=== PATIENT | female | born 1945 | race Hispanic/Latino ===

== ENCOUNTER 2017-05-06 19:02 | Inpatient (IN) | payer MEDICARE, OTHER ==
--- NOTE | 2017-05-06 19:24 | ED PDOC ---
Arrival/HPI - General Chief Complaint: Palpitations Time Seen by Provider: 05/06/17 19:20 Historian: Patient - History of Present Illness Narrative History of Present Illness (Text): 05/06/17 19:22 A 71 year old female, whose past medical history includes diabetes and hypertension, presents to the emergency department complaining of palpitations for the past 1/2 hour. Patient denies fever, chills, nausea, vomiting, abdominal pain, shortness of breath, cough, weight loss or any other complaints. PMD: Dr. Lees C.O.D. Clerk: Dr. Salinas 05/06/17 22:46 Time/Duration: 1/2 hour Symptom Course: Unchanged Context: Home Past Medical History - Provider Review Nursing Documentation Reviewed: Yes - Cardiac Hx Cardiac Disorders: Yes Hx Hypertension: Yes - Endocrine/Metabolic Hx Endocrine Disorders: Yes Hx Diabetes Mellitus Type 2: Yes - Psychiatric Hx Substance Use: No Family/Social History - Physician Review Nursing Documentation Reviewed: Yes Family/Social History: No Known Family HX Smoking Status: Never Smoked Hx Alcohol Use: No Hx Substance Use: No Allergies/Home Meds Allergies/Adverse Reactions: Allergies meperidine [From Demerol] Allergy (Verified 05/06/17 19:16) ANAPHYLAXIS Sulfa (Sulfonamide Antibiotics) Allergy (Verified 05/06/17 19:16) ANAPHYLAXIS Home Medications: Home Meds Medication Instructions Recorded Confirmed Aspirin [Adult Aspirin Regimen] 81 mg PO DAILY 05/06/17 05/06/17 NIFEdipine ER [Procardia XL] 90 mg PO DAILY 05/06/17 05/06/17 metFORMIN [glucOPHAGE] 500 mg PO DAILY 05/06/17 05/06/17 Review of Systems - Physician Review All systems were reviewed & negative as marked: Yes - Review of Systems Constitutional: absent: Weight Change, Fevers, Night Sweats Respiratory: absent: SOB, Cough Cardiovascular: Palpitations. absent: Chest Pain Gastrointestinal: absent: Abdominal Pain, Constipation, Diarrhea, Nausea, Vomiting Physical Exam Vital Signs Reviewed: Yes Vital Signs Temp Pulse Resp BP Pulse Ox 05/06/17 21:03 88 18 138/72 98 05/06/17 20:26 110 H 05/06/17 19:16 98.3 F 123 H 18 143/65 100 Temperature: Afebrile Blood Pressure: Normal Pulse: Tachycardic Respiratory Rate: Normal Appearance: Positive for: Well-Appearing, Non-Toxic, Uncomfortable Pain Distress: None Mental Status: Positive for: Alert and Oriented X 3 - Systems Exam Head: Present: Atraumatic, Normocephalic Pupils: Present: PERRL Extroacular Muscles: Present: EOMI Conjunctiva: Present: Normal Mouth: Present: Moist Mucous Membranes Neck: Present: Normal Range of Motion Respiratory/Chest: Present: Clear to Auscultation, Good Air Exchange. No: Respiratory Distress, Accessory Muscle Use Cardiovascular: Present: Normal S1, S2, Tachycardic. No: Murmurs Abdomen: Present: Normal Bowel Sounds. No: Tenderness, Distention, Peritoneal Signs Back: Present: Normal Inspection Upper Extremity: Present: Normal Inspection. No: Cyanosis, Edema Lower Extremity: Present: Normal Inspection. No: Edema, CALF TENDERNESS Neurological: Present: GCS=15, CN II-XII Intact, Speech Normal Skin: Present: Warm, Dry, Normal Color. No: Rashes Psychiatric: Present: Alert, Oriented x 3, Normal Insight, Normal Concentration Medical Decision Making ED Course and Treatment: 05/06/17 19:22 Impression: A 71 year old female with palpitations. Denies chest pain. Plan: -- Chest xray -- EKG -- Labs -- Aspirin -- Reassess and disposition Progress Notes: 05/06/17 19:18 EKG shows sinus tachycardia at [address]-segment elevation in lead III, ST-segment depressions in V2-V3. Interpreted by me. Code heart called activated at 19:21 05/06/17 19:24 Repeat EKG shows sinus tachycardia at [address]-segment elevation in lead III, ST-segment depressions in V2-V3. Interpreted by me. Case discussed with Dr. Wu, electronic gaming device supervisor patient registration clerk. Code heart deactivated at this time but requesting heparin bolus and drip and beta sarai. 05/06/17 20:28 Heart rate improved to 88 after lopressor. Trop x 1 negative. Cxray negative. Admit to Dr. Lees for palpitations 05/06/17 22:47 - Lab Interpretations Lab Results: 05/06/17 19:21 05/06/17 19:21 Lab Results 05/06/17 20:00: Free T4 1.15, TSH 3rd Generation 5.12 H 05/06/17 19:21: Sodium 139, Potassium 2.6 L*, Chloride 99, Carbon Dioxide 24, Anion Gap 19, BUN 20, Creatinine 1.2, Est GFR ( Amer) 54, Est GFR (Non- Af Amer) 44, Random Glucose 342 H*, Calcium 9.8, Total Bilirubin 0.4, AST 23, ALT 14, Alkaline Phosphatase 191 H, Lactate Dehydrogenase 396, Total Creatine Kinase 42, Troponin I < 0.01, Total Protein 8.7 H, Albumin 4.3, Globulin 4.4, Albumin/Globulin Ratio 1.0 L 05/06/17 19:21: PT 10.2, INR 0.94, APTT 30.1 05/06/17 19:21: WBC 14.7 H, RBC 4.57, Hgb 13.5, Hct 39.6, MCV 86.7, MCH 29.5, MCHC 34.1, RDW 12.5, Plt Count 484 H, MPV 8.6, Gran % 71.9 H, Lymph % (Auto) 19.9 L, Cross % (Auto) 5.0, Eos % (Auto) 2.7, Baso % (Auto) 0.5, Gran # 10.61 H, Lymph # 2.9, Cross # 0.7 H, Eos # 0.4, Baso # 0.07 I have reviewed the lab results: Yes - RAD Interpretation Radiology Orders: 05/06/17 19:24 CHEST PORTABLE [RAD] Stat - Medication Orders Current Medication Orders: Aspirin (Aspirin Chewable) 81 mg PO DAILY FRANCES Heparin Sodium/Sodium Chloride (Heparin 53276 Units/250ml 1/2 Normal Saline) 25 ,000 units in 250 mls @ 8.252 mls/hr IV .Q24H FRANCES; 12 UNITS/KG/HR PRN Reason: Protocol Last Admin: 05/06/17 20:20 Dose: 8.252 mls/hr eMAR Start Stop Document 05/06/17 20:20 AD (Rec: 05/06/17 20:21 AD [id number]) Intravenous Solution Start Date 05/06/17 Start Time 20:21 MAR aPTT Document 05/06/17 20:20 AD (Rec: 05/06/17 20:21 AD [id number]) aPTT aPTT (secs) 30.1 Potassium Chloride (Potassium Chloride 20 Meq/100 Ml) 20 meq in 100 mls @ 50 mls/hr IVPB Q2H FRANCES Stop: 05/06/17 23:59 Last Admin: 05/06/17 22:21 Dose: 50 mls/hr eMAR Start Stop Document 05/06/17 22:21 SGG (Rec: 05/06/17 22:21 SGG [id number]) Intravenous Solution Start Date 05/06/17 Start Time 22:21 Insulin Human Regular (Humulin R Med) 0 units SC ACHS FRANCES PRN Reason: Protocol Last Admin: 05/06/17 22:21 Dose: Not Given Non-Admin Reason: Blood Sugar Parameter Metformin HCl (Glucophage) 500 mg PO BID FRANCES Discontinued Medications Aspirin (Aspirin Chewable) 324 mg PO STAT STA Stop: 05/06/17 19:27 Last Admin: 05/06/17 19:25 Dose: 324 mg Heparin Sodium (Porcine) (Heparin) 4,000 units IV ONCE ONE PRN Reason: Protocol Stop: 05/06/17 19:37 Last Admin: 05/06/17 20:26 Dose: 4,000 units eMAR Start Stop Document 05/06/17 20:26 AD (Rec: 05/06/17 20:26 AD [id number]) Intravenous Solution Start Date 05/06/17 Start Time 19:40 MAR aPTT Document 05/06/17 20:26 AD (Rec: 05/06/17 20:26 AD [id number]) aPTT aPTT (secs) 30.1 Sodium Chloride (Sodium Chloride 0.9%) 500 mls @ 999 mls/hr IV .Q31M STA Stop: 05/06/17 21:00 Last Admin: 05/06/17 21:45 Dose: 999 mls/hr eMAR Start Stop Document 05/06/17 21:45 AD (Rec: 05/06/17 21:45 AD [id number]) Intravenous Solution Start Date 05/06/17 Start Time 20:30 Metoprolol Tartrate (Lopressor) 5 mg IVP STAT STA Stop: 05/06/17 19:40 Last Admin: 05/06/17 20:26 Dose: 5 mg IVP Administration Document 05/06/17 20:26 AD (Rec: 05/06/17 20:26 AD [id number]) Charges for Administration # of IVP Administrations 1 MAR Pulse and Blood Pressure Document 05/06/17 20:26 AD (Rec: 05/06/17 20:26 AD [id number]) Pulse Pulse Rate (60-90) 110 Potassium Chloride (K-Dur 20 Meq Er Tab) 40 meq PO STAT STA Stop: 05/06/17 19:48 Last Admin: 05/06/17 19:50 Dose: 40 meq - Scribe Statement The provider has reviewed the documentation as recorded by the Raquelibchuckie Espinoza Provider Scribe Attestation: All medical record entries made by the Scribe were at my direction and personally dictated by me. I have reviewed the chart and agree that the record accurately reflects my personal performance of the history, physical exam, medical decision making, and the department course for this patient. I have also personally directed, reviewed, and agree with the discharge instructions and disposition. Disposition/Present on Arrival - Present on Arrival Any Indicators Present on Arrival: No History of DVT/PE: No History of Uncontrolled Diabetes: No Urinary Catheter: No History of Decub. Ulcer: No History Surgical Site Infection Following: None - Disposition Have Diagnosis and Disposition been Completed?: Yes Diagnosis: Palpitations Disposition: HOSPITALIZED Disposition Time: 21:03 Patient Plan: Admission Condition: FAIR
[2017-05-06 19:31] LABS: BASO # 0.07 K/mm3 (0.0-2.0); BASO % 0.5 % (0.0-3.0); EOS # 0.4 (0.0-0.7); EOS % 2.7 % (1.5-5.0); GRAN # 10.61 (1.4-6.5); GRAN % 71.9 % (50.0-68.0); HEMATOCRIT 39.6 % (36.0-48.0); LYMPH # 2.9 (1.2-3.4); LYMPH % 19.9 % (22.0-35.0); MEAN CELL VOLUME 86.7 fl (80.0-105.0); MEAN CORPUSCULAR HEMOGLOBIN 29.5 pg (25.0-35.0); MEAN CORPUSCULAR HGB CONC 34.1 g/dl (31.0-37.0); MEAN PLATELET VOLUME 8.6 fl (7.0-11.0); MONO # 0.7 (0.1-0.6); RED CELL DISTRIBUTION WIDTH 12.5 % (11.5-14.5); WHITE BLOOD COUNT 14.7 10^3/ul (4.5-11.0)
[2017-05-06] MEDS ORDERED: Metoprolol 1 mg/ml Inj IVP STA (19:39)
[2017-05-06] MEDS ORDERED: Heparin25000 units/250ml 1/2NS 25,000 UNITS/250 ML BAG IV SCH (19:45)
[2017-05-06 19:46] LABS: ALKALINE PHOSPHATASE 191 U/L (38-126); ALT/SGPT 14 U/L (7-56); AST/SGOT 23 U/L (14-36); BILIRUBIN,TOTAL 0.4 mg/dL (0.2-1.3); BLOOD UREA NITROGEN 20 mg/dL (7-21); CALCIUM 9.8 mg/dL (8.4-10.5); CARBON DIOXIDE 24 mmol/L (21-33); CHLORIDE 99 mmol/L (98-107); GFR AFRICAN-AMERICAN 54; GLUCOSE,RANDOM 342 mg/dL (70-110); POTASSIUM 2.6 mmol/L (3.6-5.0); SODIUM 139 mmol/L (132-148); TOTAL PROTEIN 8.7 g/dL (5.8-8.3)
[2017-05-06 19:47] LABS: INR 0.94 (0.93-1.08)
[2017-05-06] MEDS ORDERED: Potassium Chloride 20 mEq ER Tab PO STA (19:47)
[2017-05-06 19:48] LABS: PARTIAL THROMBOPLASTIN TIME 30.1 Seconds (25.1-36.5)
[2017-05-06 19:52] LABS: TROPONIN I < 0.01 ng/mL
[2017-05-06] MEDS ORDERED: Sodium Chloride 0.9% 500 ML IV STA (20:30)
[2017-05-06 20:34] LABS: FREE T4 1.15 ng/dL (0.78-2.19)
[2017-05-06 20:47] LABS: THYROID STIMULATING HORMONE 5.12 mIU/mL (0.46-4.68)
[2017-05-06] MEDS: Insulin Reg-MEDIUM-Coverage SC SCH (22:21)
[2017-05-07 06:23] LABS: BASO # 0.06 K/mm3 (0.0-2.0); BASO % 0.5 % (0.0-3.0); EOS # 0.2 (0.0-0.7); EOS % 1.6 % (1.5-5.0); GRAN # 8.84 (1.4-6.5); GRAN % 69.5 % (50.0-68.0); HEMATOCRIT 37.3 % (36.0-48.0); LYMPH # 2.9 (1.2-3.4); LYMPH % 23.1 % (22.0-35.0); MEAN CELL VOLUME 87.8 fl (80.0-105.0); MEAN CORPUSCULAR HEMOGLOBIN 29.2 pg (25.0-35.0); MEAN CORPUSCULAR HGB CONC 33.2 g/dl (31.0-37.0); MEAN PLATELET VOLUME 8.8 fl (7.0-11.0); MONO # 0.7 (0.1-0.6); MONO % 5.3 % (1.0-6.0); RED CELL DISTRIBUTION WIDTH 12.7 % (11.5-14.5); WHITE BLOOD COUNT 12.7 10^3/ul (4.5-11.0)
[2017-05-07 06:57] LABS: ALKALINE PHOSPHATASE 173 U/L (38-126); ALT/SGPT 22 U/L (7-56); AST/SGOT 55 U/L (14-36); BILIRUBIN,TOTAL 0.3 mg/dL (0.2-1.3); BLOOD UREA NITROGEN 18 mg/dL (7-21); CALCIUM 9.4 mg/dL (8.4-10.5); CARBON DIOXIDE 23 mmol/L (21-33); CHLORIDE 104 mmol/L (98-107); GFR AFRICAN-AMERICAN > 60; GLUCOSE,RANDOM 165 mg/dL (70-110); POTASSIUM 4.1 mmol/L (3.6-5.0); SODIUM 141 mmol/L (132-148); TOTAL PROTEIN 7.7 g/dL (5.8-8.3)
--- NOTE | 2017-05-07 08:04 | RAD ---
HISTORY: chest pain COMPARISON: No prior. FINDINGS: LUNGS: No active pulmonary disease. PLEURA: No significant pleural effusion identified, no pneumothorax apparent. CARDIOVASCULAR: Normal. OSSEOUS STRUCTURES: No significant abnormalities. VISUALIZED UPPER ABDOMEN: Normal. OTHER FINDINGS: None. IMPRESSION: No active disease.
[2017-05-07] MEDS ORDERED: Lidocaine 2% Inj (20ml) ONE (08:17)
[2017-05-07] MEDS ORDERED: Iohexol 350 MG/100 ML VIAL ONE (08:18)
[2017-05-07] MEDS ORDERED: Iohexol 350mgl/ml 50 ML ONE (08:18)
[2017-05-07] MEDS ORDERED: Phenylephrine 10 mg/ml Inj ONE (08:18)
[2017-05-07] MEDS: Insulin Reg-MEDIUM-Coverage SC SCH ×4 (08:21→22:23)
[2017-05-07] MEDS ORDERED: Iodixanol 320 MG/ML 200 ML BOTTLE IV ONE (08:22)
[2017-05-07 08:44] VITALS: O2SAT 98
[2017-05-07] MEDS ORDERED: Nitroglycerin 50mg in D5W 50 MG/250 ML BOTTLE IV ONE (08:45)
[2017-05-07 08:48] LABS: TROPONIN I 3.57 ng/mL
[2017-05-07] MEDS ORDERED: Midazolam 2 MG/2 ML VIAL ONE (08:58)
[2017-05-07 09:28] LABS: CHOLESTEROL 222 mg/dL (130-200)
[2017-05-07] MEDS ORDERED: Eptifibatide 20 mg/10mL Inj IVP ONE (09:32)
[2017-05-07] MEDS ORDERED: Sodium Chloride 0.9% 1,000 ML IV SCH (10:45)
--- NOTE | 2017-05-07 11:45 | CARD ---
APPROVED REPORT EKG Measurement Heart [id number] [place] 160P32 [id number] <Conclusion> Sinus tachycardia Left axis deviation PRWP STTW changes c/e ischemia
--- NOTE | 2017-05-07 11:47 | CARD ---
APPROVED REPORT EKG Measurement Heart [id number] CT 152P31 [id number] <Conclusion> Sinus tachycardia Left axis deviation PRWP STTW chanhges c/w ischemia No change from earlier ECG
--- NOTE | 2017-05-07 12:21 | CARD ---
APPROVED REPORT EKG Measurement Heart [id number] [place] 148P36 [id number] <Conclusion> Normal sinus rhythm Left axis deviation Inferior infarct, age undetermined Improved repolarization changes c/w ECG 05/06/17
--- NOTE | 2017-05-07 13:05 | CARD ---
APPROVED REPORT Procedure(s) performed: Left Heart Catheterization PTCA with Stenting of MId LAD with COOKIE PTCA with Stenting of OM! with COOKIE PTCA with Balloon Angioplasty of Mid Circumflex HISTORY The patient is a 71 year-old female with a history of : diabetes mellitus with insulin treatment , hypertension , Admitted with ACS/ NSTEMI. INDICATION The indication(s) include : non-STEMI . CASE TECHNIQUE The patient was brought urgently to the Cardiac Catheterization Laboratory in a fasting state and was prepped and draped in a sterile manner. The left wrist was infiltrated with 2% Lidocaine subcutaneous anesthesia. A 6FR GLIDESVerified Identity PassTH ACCESS KIT sheath was inserted into the left radial artery without difficulty. Coronary angiography was performed using coronary diagnostic catheters. The left coronary system was accessed and visualized with a Diagnostic ,5 Fr JL 4 catheter. The right coronary system was accessed and visualized with a Diagnostic ,5 Fr JR 4 catheter. The left ventricle was accessed and visualized with a 5 Fr Pigtail 145 (Angled) catheter. Left ventricular/Aortic Valve gradient assessed on pullback. Left ventriculogram was performed in PATTERSON projection. Closure device was deployed with a Fr TR Band (Regular) without any complications. The patient tolerated the procedure well and there were no complications associated with the procedure. Vessel Analysis The patient's coronary anatomy is right dominant. The left main coronary artery is a medium size vessel with diffuse calcification noted throughout this vessel and without significant stenosis. There is a 30% stenosis in the distal segment. The left main bifurcates to the left anterior descending and circumflex. The left anterior descending artery is a medium size vessel with diffuse calcification noted throughout this vessel and with significant stenosis. There is a 80% stenosis in the mid segment. The first diagonal branch is a medium size vessel with diffuse calcification noted throughout this vessel and without significant stenosis. The second diagonal branch is a small size vessel with diffuse calcification noted throughout this vessel and without significant stenosis. The circumflex artery is a medium size vessel with diffuse calcification noted throughout this vessel and with significant stenosis. There is a 80% stenosis in the mid segment. The first obtuse marginal branch is a large size vessel with diffuse calcification noted throughout this vessel and with significant stenosis. There is a 99% stenosis in the ostial segment. The right coronary artery is a medium size vessel with diffuse calcification noted throughout this vessel and without significant stenosis. The right posterior descending artery is a large size vessel with diffuse calcification noted throughout this vessel and without significant stenosis. The right posterolateral branch is a small size vessel with diffuse calcification noted throughout this vessel and with significant stenosis. There is a 100% stenosis . Left Ventricle The left ventricle is normal in size with normal contractility. There was no cardiomyopathy. The left ventricular ejection fraction is estimated to be 55%. The left ventricular end diastolic pressure is 12 mmHg. There was no gradient across the aortic valve upon pullback. PCI Technique Lesion Anticoagulation was achieved with Heparin. Percutaneous coronary intervention was performed on the mid left anterior descending artery segment. The lesion stenosis prior to intervention was 80% with MARÍA 2 flow. A 6 Fr XB 3 Guide Catheter was used to engage the ostium. A Luge 182 Interventional Guidewire was used to cross the lesion. BALLOON DILATION A Balloon catheter 2.0 x 6 mm Sprinter RX was inserted and inflated up to 8.00atm for 11seconds. STENT DEPLOYMENT A drug-eluting stent 3.0 x 9 mm Resolute COOKIE was inserted and inflated up to 11.00atm for 16seconds. Final angiography reveals 0 % stenosis with MARÍA 3 flow. PCI Technique Lesion 2 Percutaneous Coronary Intervention was performed on the first obtuse marginal branch segment. The lesion stenosis prior to intervention was 99% with MARÍA 2 flow. A 6 Fr XB 3 Guide Catheter was used to engage the ostium. A 0.014 x 182 cm Choice PT Extra Support Interventional Guidewire was used to cross the lesion. BALLOON DILATION A Balloon catheter 2.25 x 10 mm Sprinter RX was inserted and inflated up to 8.00atm for 24seconds. STENT DEPLOYMENT A drug-eluting stent 2.75 x 8 mm Resolute COOKIE was inserted and inflated up to 10.00atm for 20seconds. Final angiography reveals 0 % stenosis with MARÍA 3 flow. PCI Technique Lesion 3 Percutaneous Coronary Intervention was performed on the mid circumflex artery segment. The lesion stenosis prior to intervention was 80% with MARÍA 2 flow. A 6 Fr XB 3 Guide Catheter was used to engage the ostium. A Luge 182 Interventional Guidewire was used to cross the lesion. BALLOON DILATION A Balloon catheter 2.25 x 10 mm Sprinter RX was inserted and inflated up to 8.00atm for 18seconds. multiple inflatation 6-8 atmosphere Final angiography reveals 20-30 % stenosis with MARÍA 3 flow. Conclusion Multivessel CAD Preserved LV Fx, EF-55%, EDP-12 mmof Hg. Successful PTCA with COOKIE of Mid LAD and Ostial OM1 and POBA of Mid Cx Recommendations Cardiac Rehabilitation ReferralDaily ASA with Plavix for at least one year Aggressive Medical TherapyCardiac Risk Reduction Program F/u stress test in six months to montor progression of CADand ensure patency of PTCA sites. Medical treatment for RCA for now, should she becomes symptomatic, may consider PCI of RCA, though unlikely. CC; dr. Shane lilly.
[2017-05-07] MEDS ORDERED: Bacitracin 500 Units/gm Oint Foilpak UD ONE (14:49)
[2017-05-07 15:14] LABS: BASO # 0.04 K/mm3 (0.0-2.0); BASO % 0.4 % (0.0-3.0); EOS # 0.1 (0.0-0.7); EOS % 0.5 % (1.5-5.0); GRAN # 8.17 (1.4-6.5); GRAN % 74.2 % (50.0-68.0); HEMATOCRIT 35.3 % (36.0-48.0); LYMPH # 2.2 (1.2-3.4); LYMPH % 19.5 % (22.0-35.0); MEAN CELL VOLUME 87.6 fl (80.0-105.0); MEAN CORPUSCULAR HEMOGLOBIN 29.5 pg (25.0-35.0); MEAN CORPUSCULAR HGB CONC 33.7 g/dl (31.0-37.0); MEAN PLATELET VOLUME 8.5 fl (7.0-11.0); MONO # 0.6 (0.1-0.6); MONO % 5.4 % (1.0-6.0); RED CELL DISTRIBUTION WIDTH 12.6 % (11.5-14.5)
[2017-05-07 15:44] LABS: BLOOD UREA NITROGEN 14 mg/dL (7-21); CALCIUM 8.9 mg/dL (8.4-10.5); CARBON DIOXIDE 25 mmol/L (21-33); CHLORIDE 105 mmol/L (98-107); GFR AFRICAN-AMERICAN > 60; GLUCOSE,RANDOM 199 mg/dL (70-110); POTASSIUM 3.7 mmol/L (3.6-5.0); SODIUM 140 mmol/L (132-148)
--- NOTE | 2017-05-07 18:12 | PN ---
DATE: 05/07/2017 REASON FOR CONSULTATION: Acute coronary syndrome, unstable angina. BRIEF MEDICAL HISTORY: The patient is a 71-year-old female with a past medical history significant for hypertension, hyperlipidemia, and diabetes, admitted with acute coronary syndrome and significant ST-T changes. The patient underwent cardiac catheterization that shows high-grade stenosis at mid LAD of 80%, proximal circumflex of 80% and 90% stenosis, and ostial OM1 99% stenosis. The patient underwent successful PTCA with drug-eluting stent in LAD and OM1 and plain balloon angioplasty of circumflex. The patient was loaded with Plavix approached through left radial. Further recommendation will depend upon the hospital course. We will get lipid profile, TSH, and hemoglobin A1c. We will get echo by the time the patient is going to the environmental laboratory technician. Troponin came back, second one was at 3.69, so consistent with acute coronary syndrome. The patient had lesion in RCA of 60%. PLAN: To follow her up with a stress test in 6 months as outpatient and if symptomatic, we will consider PTCA of RCA. Otherwise, we will treat medically and also the patient had PLV branch occluded, not suitable for PCI, preserved LV function. Medical treatment recommended. Casey Salinas MD cc: Kristian Lees MD
--- NOTE | 2017-05-07 18:52 | HP ---
HISTORY OF PRESENT ILLNESS: The patient is a 71 year old woman with a past medical history of hypertension, hyperlipidemia and non insulin-dependent diabetes mellitus who presented to [facility] for evaluation of a 1 day history of palpitations. The patient reported to be in her usual state of health on the day of presentation to the ED when she was running multiple errands without any symptoms. Later that evening, after having dinner, the patient reported sitting on her bed and using her iPad when she developed a sudden sensation of palpitations. The patient states that she felt as though her heart was "racing in her chest" and reported lightheadedness associated with her symptoms. She denied chest pain, dyspnea, diaphoresis or near-syncope associated with her symptoms. After several minutes when her palpitations had not subsided, she called EMS and was brought to [facility] ED for further evaluation. Upon arrival to the ED, she was noted to be tachycardic with a pulse of 123 and in sinus rhythm, but was otherwise hemodynamically stable. An EKG demonstrated isolated ST elevation in lead III with depressions in V2 and V3. The patient was started on a heparin drip and subsequently admitted to the telemetry tellez for continued management. PAST MEDICAL HISTORY: As per HPI. PAST SURGICAL HISTORY: , partial hysterectomy. ALLERGIES: CODEINE, DEMEROL, AND SULFA. FAMILY HISTORY: Significant for lung cancer and hypertension in both parents. SOCIAL HISTORY: The patient denies any smoking. She reports social alcohol use and denies illicit drug abuse. MEDICATIONS: Metformin 500 mg p.o. daily, Nifedepine ER 90 mg p.o. daily, and hydrochlorothiazide 25 mg p.o. daily. REVIEW OF SYSTEMS: A 14-point review of systems is negative, except as per HPI. PHYSICAL EXAMINATION: VITAL SIGNS: Temperature 97.7, pulse 85, blood pressure 158/90, respiratory rate 20, oxygen saturation 96% on room air. GENERAL: No apparent distress. HEENT: PERRL, EOMI. No scleral icterus. No conjunctival pallor. NECK: No JVD. No bruits. LUNGS: Clear to auscultation. CARDIOVASCULAR: Regular rate and rhythm. Normal S1 and S2. No murmurs, rubs, or gallops. ABDOMEN: Normoactive bowel sounds, soft, nontender, nondistended. EXTREMITIES: No edema. NEUROLOGIC: Awake, alert, and oriented x3. No focal motor deficits. LABORATORY DATA: WBC 12.7, hemoglobin 12, hematocrit 37, platelets 408. Chemistry reviewed and unremarkable. Troponin less than 0.01. TSH 5.12. IMAGING STUDIES: Chest x-ray demonstrates no active disease. ASSESSMENT: The patient is a 71 year old woman with hypertension, hyperlipidemia and rny-hmupnhv-cuwnmqgnj diabetes mellitus who presented with a 1 day history of palpitations and who was admitted to the telemetry tellez for management of palpitations. PLAN: 1. Palpitations. Given the patient's cardiac risk factors, as well as the EKG changes, the patient will be taken to the cardiac catheterization lab for further evaluation. She remains n.p.o. in anticipation of cardiac catheterization. She has been loaded with Plavix and aspirin. 2. Hypertension. Blood pressure controlled. Will resume home medications after cardiac catheterization. 3. Hyperlipidemia. The patient has previously declined a statin due to history of myopathy. However, given her cardiac risk factors, we will need to re-address the use of the statin in this patient. 4. Dte-dpepjnq-opadcqvwx diabetes mellitus. The most recent A1c was 6.4 (from 11/2016). A repeat A1c is pending. We will continue Metformin 500 mg p.o. b.i.d. and medium dose insulin sliding scale for coverage. 5. Prophylaxis. GI prophylaxis is not indicated as the patient is eating. DVT prophylaxis is not indicated as the patient is ambulatory. CODE STATUS: Full code. Kristian Lees MD ANNIKA
--- NOTE | 2017-05-07 20:01 | CON ---
DATE: 05/07/2017 CONSULT SERVICE: Cardiology. REASON FOR CONSULTATION: Abnormal EKG, possible unstable angina, acute coronary syndrome. BRIEF CLINICAL HISTORY: This is a 71-year-old female with past medical history significant for diabetes, hypertension, hyperlipidemia, who came to the emergency room with complaints of palpitation for half an hour prior to coming to the ER acute NM code team was activated , later on seen by Dr. Wu. EKG and code was canceled. The patient denies any chest pain now, but feels the heaviness in the chest since last night and palpitation. PAST MEDICAL HISTORY: Significant for diabetes, hypertension, hyperlipidemia. SOCIAL HISTORY: Denies smoking. Denies any history of alcohol abuse. CURRENT MEDICATIONS: The patient at home was taking metformin 500 p.o. daily, aspirin 81 mg daily, nifedipine 90 mg daily. REVIEW OF SYSTEMS: As per HPI. PHYSICAL EXAMINATION: As follows: VITAL SIGNS: Temperature afebrile, heart rate 85, blood pressure 158/90. HEENT: PERRLA. Extraocular muscles intact. NECK: Supple. No carotid bruits or thyromegaly. CHEST: Clear to auscultation. HEART: S1 and S2 regular. ABDOMEN: Soft. EXTREMITIES: Clubbing and cyanosis negative. LABORATORY DATA: WBC 12.7, hemoglobin 12.4, hematocrit 37.3, platelet count 407. Chemistry shows sodium 141, potassium 4.0, chloride 104, carbon dioxide 23, anion gap of 18, BUN 18, creatinine 0.9. EKG shows normal sinus, half a millimeter ST elevation in inferior lead and reciprocal ST depression in II, III, V2, V4. IMPRESSION: Unstable angina, diabetes, hypertension, hyperlipidemia, multiple episodes of coronary artery disease, grossly abnormal electrocardiogram, suggest cardiac catheterization. We will load with 300 mg of Plavix, 325 of aspirin. Stop heparin. Discussed with the patient. Discussed with the family, , Danny Baker agreed to proceed for cardiac catheterization. We will add on troponin, first troponin was 0.01, second troponin will add on now in the morning assessment, also add the lipid profile and TSH. We will follow with you. Thank you Dr. Kristian Lees for providing us the opportunity in taking care of the patient, Ailin Baker. We will follow with you. We will hold metformin, resume from tomorrow, and we will add aspirin and Plavix every day. We will put Lipitor empirically till the lipid profile comes. We will follow with you. Casey Salinas MD
[2017-05-08 04:15] VITALS: RESP 18
[2017-05-08 05:55] LABS: BASO # 0.04 K/mm3 (0.0-2.0); BASO % 0.4 % (0.0-3.0); EOS # 0.3 (0.0-0.7); EOS % 2.4 % (1.5-5.0); GRAN # 7.41 (1.4-6.5); GRAN % 66.8 % (50.0-68.0); HEMATOCRIT 36.4 % (36.0-48.0); LYMPH # 2.6 (1.2-3.4); LYMPH % 23.6 % (22.0-35.0); MEAN CELL VOLUME 88.6 fl (80.0-105.0); MEAN CORPUSCULAR HEMOGLOBIN 29.2 pg (25.0-35.0); MEAN PLATELET VOLUME 8.7 fl (7.0-11.0); MONO # 0.8 (0.1-0.6); MONO % 6.8 % (1.0-6.0); RED CELL DISTRIBUTION WIDTH 12.8 % (11.5-14.5); WHITE BLOOD COUNT 11.1 10^3/ul (4.5-11.0)
[2017-05-08 06:25] VITALS: TEMP 98.1
[2017-05-08 06:57] LABS: BILIRUBIN,TOTAL 0.5 mg/dL (0.2-1.3); CALCIUM 9.2 mg/dL (8.4-10.5); POTASSIUM 3.5 mmol/L (3.6-5.0); TOTAL PROTEIN 7.1 g/dL (5.8-8.3)
[2017-05-08] MEDS ORDERED: Potassium Chloride 20 mEq ER Tab PO ONE (07:45)
[2017-05-08] MEDS: Insulin Reg-MEDIUM-Coverage SC SCH (08:17)
[2017-05-08 09:28] VITALS: BP 147/75; PULSE 76
--- NOTE | 2017-05-08 12:56 | PN ---
DATE: REASON FOR CONSULTATION: Acute coronary artery syndrome, unstable angina, non-ST segment myocardial infarction, status post angioplasty, 2 vessels in LAD, circumflex, and OM1. SUBJECTIVE: The patient denies any chest pain, shortness of breath, or any palpitation. Feels a lot better. OBJECTIVE: As follows: VITAL SIGNS: Temperature afebrile, heart rate 77, blood pressure 147/75. HEENT: PERRLA. Extraocular muscles intact. NECK: Supple. No carotid bruits or thyromegaly. CHEST: Clear to auscultation. HEART: S1 and S2, regular. ABDOMEN: Soft. EXTREMITIES: Clubbing and cyanosis negative. LABORATORY DATA: Blood workup as follow; WBC 11.9, hemoglobin 12, hematocrit 36.4, platelet count 426. Chemistry shows sodium 141, potassium 3.5, chloride of , carbon dioxide 25, anion gap of 13, BUN 17, creatinine 1.1. IMPRESSION: Acute coronary artery syndrome, unstable angina, non-ST segment myocardial infarction with maximum troponin 3.57, status post primary angioplasty of left anterior descending with stent, status post primary angioplasty of obtuse marginal 1 with stent, and status post prior angioplasty of circumflex, plain balloon angioplasty; diabetes; hypertension; hyperlipidemia; hypothyroidism. Thyroid-stimulating hormone level 5.12, total triglyceride 131, total cholesterol 222, low-density lipoprotein 159. We will increase Lipitor to 40. Continue aspirin. Continue Plavix. Start Synthroid 25 mcg. Continue lisinopril 10 mg daily and metoprolol 25 b.i.d. We will discuss with Dr. Kristian Lees. Thank you Dr. Lees for providing us the opportunity in taking care of the patient, Samuel. We will follow up in the office and it is okay to be discharged with supplement potassium. Left radial artery distal to the 2+ pulse. No hematoma noted. Dressing was changed. Casey Salinas MD
--- NOTE | 2017-05-08 13:10 | PN ---
SUBJECTIVE: The patient was seen and examined at bedside on the telemetry tellez. No acute events overnight. She remains afebrile and hemodynamically stable. The patient is status post cardiac catheterization with Dr. Salinas with successful placement of COOKIE stent to the mid LAD and OM1 lesions and POBA of the circumflex lesion. This morning she feels great and denies any further palpitations, chest discomfort or dyspnea. OBJECTIVE: VITAL SIGNS: Temperature 98.1, pulse 64, blood pressure 131/60, respiratory rate 18, oxygen saturation 97% on room air. GENERAL: No apparent distress. HEENT: PERRL, EOMI. No scleral icterus. No conjunctival pallor. NECK: No JVD. No bruits. LUNGS: Clear to auscultation. CARDIOVASCULAR: Regular rate and rhythm. Normal S1 and S2. No murmurs, rubs, or gallops. ABDOMEN: Normoactive bowel sounds, soft, nontender, and nondistended. EXTREMITIES: No edema. NEUROLOGIC: Awake, alert, and oriented x3. No focal motor deficits. LABORATORY DATA: CBC reviewed and largely unremarkable. CMP reviewed and largely unremarkable with the exception of potassium of 3.5. Hemoglobin A1c 7.6. TSH 5.12. Cholesterol 222, LDL 159, HDL 44, triglycerides 131. ASSESSMENT: The patient is a 71 year old woman with hypertension, hyperlipidemia and xhu-pxwzwpo-bzddbgnca diabetes mellitus who presented with a 1 day history of palpitations and was admitted to the telemetry tellez for management of palpitations and was subsequently found to have a NSTEMI who is now status post cardiac catheterization which demonstrated triple-vessel CAD s/ p COOKIE stent placement to the mid LAD and OM1 lesions and POBA of the circumflex lesion. PLAN: 1. NSTEMI. Input from Dr. Salinas noted and greatly appreciated. The patient is status post cardiac catheterization with stent placement as above. Continue aspirin 81 mg p.o. daily, Plavix 75 mg p.o. daily, Lipitor 40 mg p.o. daily, and metoprolol 25 mg p.o. b.i.d. The patient was counseled on lifestyle modifications and the possible need to enroll in a cardiac risk reduction program. 2. Triple-vessel CAD. Input from Dr. Salinas greatly appreciated. Continue with care as per #1. 3. Hypertension. Blood pressure controlled. Continue lisinopril 10 mg p.o. daily and metoprolol 25 mg p.o. b.i.d. 4. Hyperlipidemia. Continue Lipitor 40 mg p.o. daily. 5. Xtf-ezkvxyt-pwbvfnuos diabetes mellitus, most recent A1c of 7.6. We will increase metformin from 500 mg p.o. daily to 500 mg p.o. b.i.d. 7. Hypothyroidism. We will start Synthroid 25 mcg p.o. daily. 8. Prophylaxis. GI prophylaxis is not indicated as the patient is eating. DVT prophylaxis is not indicated as the patient is ambulatory. 9. Disposition. The patient for discharge to home today. Code status: Full code. Kristian Lees MD MTDD
--- NOTE | 2017-05-08 18:56 | CARD ---
APPROVED REPORT EXAM: Two-dimensional and M-mode echocardiogram with Doppler and color Doppler. INDICATION Chest Pain LVFX 2D DIMENSIONS Left Atrium (2D)4.4 (1.6-4.0cm)IVSd1.2 (0.7-1.1cm) LVDd4.4 (3.9-5.9cm)PWd1.2 (0.7-1.1cm) LVDs3.3 (2.5-4.0cm)FS (%) 25.0 % LVEF (%)49.7 (>50%) M-Mode DIMENSIONS Aortic Root3.20 (2.2-3.7cm)Aortic Cusp Exc.1.20 (1.5-2.0cm) Aortic Valve AoV Peak Zdjiaail772.0cm/sAoV VTI42.6cmAO Peak GR.18mmHg LVOT Peak Fjkutcud968.0cm/sLVOT VTI21.40cmAO Mean GR.9mmHg AI P 1/2 Lzil461id Mitral Valve MV E Afsflbol04.1cm/sMV A Gzfwkqsj05.2cm/sE/A ratio0.7 TDI Lateral E' Peak V7.70cm/sMedial E' Peak V3.80cm/sE/Lateral E'8.7 E/Medial E'17.7 Pulmonary Valve PV Peak Oqhvickv85.5cm/sPV Peak Grad.3mmHg Tricuspid Valve TR Peak Icicoxrw598wr/sRAP AULMJAVW06iaObQO Peak Gr.26mmHg EXPR12wsCs LEFT VENTRICLE The left ventricle is normal size. There is borderline concentric left ventricular hypertrophy. Left ventricle systolic function is low normal.EF-50-55% There is mild hypokinesis in the apical anterior wall. Transmitral Doppler flow pattern is Grade III-reversible restrictive diastolic dysfunction. No left ventricle thrombus noted on this study. There is no ventricular septal defect visualized. There is no left ventricular aneurysm. There is no mass noted in the left ventricle. RIGHT VENTRICLE The right ventricle is normal size. There is normal right ventricular wall thickness. The right ventricular systolic function is normal. ATRIA The left atrium is mildly dilated. The right atrium size is normal. The interatrial septum is intact with no evidence for an atrial septal defect. AORTIC VALVE The aortic valve is calcified and displays decreased opening. The aortic valve is moderately sclerotic. There is trace aortic regurgitation. There is mild valvular aortic stenosis. There is no aortic valvular vegetation. MITRAL VALVE The mitral valve is thickened but opens well. Mitral regurgitation is mild. There is no mitral valve stenosis. There is no evidence of mitral valve prolapse. TRICUSPID VALVE The tricuspid valve leaflets are thickened , but open well. There is mild tricuspid regurgitation.RVSP-28 mmof hg. There is no tricuspid valve stenosis. There is no tricuspid valve prolapse or vegetation. PULMONIC VALVE The pulmonic valve is not well visualized, But probably normal. GREAT VESSELS The aortic root is normal in size. The ascending aorta is normal in size. The pulmonary artery is normal. The IVC is normal in size and collapses >50% with inspiration. PERICARDIAL EFFUSION There is no pleural effusion. There is no pericardial effusion. <Conclusion> The left ventricle is normal size. There is borderline concentric left ventricular hypertrophy. Left ventricle systolic function is low normal.EF-50-55% There is trace aortic regurgitation. Mitral regurgitation is mild. There is mild tricuspid regurgitation.RVSP-28 mmof hg. S/p NSTEMI, S/p Multi vessel PTCA.
[2017-05-09] MEDS ORDERED: Levothyroxine 25 MCG TAB PO SCH (06:00)
== END 2017-05-08 10:42 | disposition home or self-care (01) | DRG 247 ==
LOC: ED 19:02 → ERH 20:35 → 3RSO 21:59 → 2RSO 05-07 10:55 → OBSVTOIN 05-07 13:39 → 2RSO 05-08 06:35
PROVIDERS: ADMIT Student in an Organized Health Care Education/Training Program; ATTEND Student in an Organized Health Care Education/Training Program
PROC: 027135Z Dilation of Coronary Artery, Two Arteries with Two Drug-eluting Intraluminal Devices, Percutaneous Approach (ICD-10-PCS; principal; 2017-05-07)
PROC: 02703ZZ Dilation of Coronary Artery, One Artery, Percutaneous Approach (ICD-10-PCS; 2017-05-07)
PROC: 4A023N7 Measurement of Cardiac Sampling and Pressure, Left Heart, Percutaneous Approach (ICD-10-PCS; 2017-05-07)
PROC: B211YZZ Fluoroscopy of Multiple Coronary Arteries using Other Contrast (ICD-10-PCS; 2017-05-07)
PROC: B215YZZ Fluoroscopy of Left Heart using Other Contrast (ICD-10-PCS; 2017-05-07)
DX: I21.4 Non-ST elevation (NSTEMI) myocardial infarction (principal); I25.110 Atherosclerotic heart disease of native coronary artery with unstable angina pectoris; E11.9 Type 2 diabetes mellitus without complications; I10 Essential (primary) hypertension; E78.5 Hyperlipidemia, unspecified; E03.9 Hypothyroidism, unspecified; Z79.84 Long term (current) use of oral hypoglycemic drugs

== ENCOUNTER 2017-11-01 12:10 | Day surgery (SDC) | payer MEDICARE ==
--- NOTE | 2017-11-01 12:51 | ED PDOC ---
Arrival/HPI - General Chief Complaint: Chest Pain Time Seen by Provider: 11/01/17 12:23 Historian: Patient - History of Present Illness Narrative History of Present Illness (Text): 71yo female with history of x 2 cardiac stents, presents to Emergency department for evaluation of chest pressure since last night. Patient states she was eating dinner when she felt sudden onset chest pressure, which was still present this AM, prompting her visit. In the ER, she reports the pain is mild with associated nausea. She denies any shortness of breath, abdominal pain , vomiting, or weakness. She has no other medical complaints. PMD: Dr. Lees Adjunct Nursing Faculty: Dr. Salinas Time/Duration: Other (last night) Symptom Onset: Sudden Symptom Course: Unchanged Quality: Pressure Past Medical History - Provider Review Nursing Documentation Reviewed: Yes - Travel History Have you recently traveled outside [place] w/in the past 3 mons?: No - Infectious Disease Hx of Infectious Diseases: None - Cardiac Hx Cardiac Disorders: Yes Hx Hypertension: Yes - Endocrine/Metabolic Hx Endocrine Disorders: Yes Hx Diabetes Mellitus Type 2: Yes - Musculoskeletal/Rheumatological Hx Falls: No - Psychiatric Hx Substance Use: No - Surgical History Hx Section: Yes Hx Hysterectomy: Yes Family/Social History - Physician Review Nursing Documentation Reviewed: Yes Family/Social History: No Known Family HX Smoking Status: Never Smoked Hx Alcohol Use: No Hx Substance Use: No Allergies/Home Meds Allergies/Adverse Reactions: Allergies meperidine [From Demerol] Allergy (Verified 11/01/17 12:19) ANAPHYLAXIS Sulfa (Sulfonamide Antibiotics) Allergy (Verified 11/01/17 12:19) ANAPHYLAXIS Home Medications: Home Meds Medication Instructions Recorded Confirmed Aspirin [Adult Aspirin Regimen] 81 mg PO DAILY 05/06/17 05/08/17 metFORMIN [glucOPHAGE] 500 mg PO BID 05/06/17 05/08/17 Levothyroxine [Synthroid] 25 mcg PO DAILY 05/08/17 05/08/17 Lipitor 40 mg PO DAILY 05/08/17 05/08/17 Lisinopril 10 mg PO DAILY 05/08/17 05/08/17 Lopressor 25 mg PO BID 05/08/17 05/08/17 Plavix 75 mg PO DAILY 05/08/17 05/08/17 Review of Systems - Physician Review All systems were reviewed & negative as marked: Yes - Review of Systems Respiratory: absent: SOB Cardiovascular: Chest Pain Gastrointestinal: Nausea. absent: Abdominal Pain Physical Exam Vital Signs Reviewed: Yes Vital Signs Temp Pulse Resp BP Pulse Ox 11/01/17 13:02 99 F 76 16 159/88 H 96 11/01/17 12:10 99.1 F 84 18 180/104 H 96 - Systems Exam Head: Present: Atraumatic, Normocephalic Pupils: Present: PERRL Extroacular Muscles: Present: EOMI Conjunctiva: Present: Normal Mouth: Present: Moist Mucous Membranes Neck: Present: Normal Range of Motion Respiratory/Chest: Present: Clear to Auscultation, Good Air Exchange. No: Respiratory Distress, Accessory Muscle Use Cardiovascular: Present: Regular Rate and Rhythm, Normal S1, S2. No: Murmurs Abdomen: No: Tenderness, Distention, Peritoneal Signs Back: Present: Normal Inspection Upper Extremity: Present: Normal Inspection. No: Cyanosis, Edema Lower Extremity: Present: Normal Inspection. No: Edema Neurological: Present: GCS=15, CN II-XII Intact, Speech Normal Skin: Present: Warm, Dry, Normal Color. No: Rashes Psychiatric: Present: Alert, Oriented x 3, Normal Insight, Normal Concentration Medical Decision Making ED Course and Treatment: Impression: Chest pain Plan: -- Labs -- EKG -- Chest X-ray Progress: EKG: NSR [address] elevation lead V2 Deep symmetrical T-wave inversion V2-V6 Additional T-wave inversion in inferior leadws Prolonged QTc in 532 New compared to prior on 05/07/17 11/01/17 12:[address] Salinas who recommends ASA and Plavix, he will evaluate patient in Emergency room Due to concerning EKG, case discussed with Dr. Thornton as well, who states the patient does not meet criteria for code STEMI. 11/01/17 12:57 Dr. Salinas in ER and evaluated patient. He will take patient up to [facility]. Case discussed with Dr. Lees and patient admitted under his service. 11/01/17 13:11 - Critical Care Critical Care Minutes: 30 minutes Critical Care Time: Excluding Proc Time - Medication Orders Current Medication Orders: Discontinued Medications Aspirin (Aspirin) 325 mg PO STAT STA Stop: 11/01/17 12:51 Last Admin: 11/01/17 12:55 Dose: 325 mg Clopidogrel Bisulfate (Plavix) 300 mg PO STAT STA Stop: 11/01/17 12:51 Last Admin: 11/01/17 12:55 Dose: 300 mg Nitroglycerin (Nitrostat Sl Tab) 0.4 mg SL STAT STA Stop: 11/01/17 12:51 Last Admin: 11/01/17 12:55 Dose: 0.4 mg - Scribe Statement The provider has reviewed the documentation as recorded by the Scribe (Pearl Mariano) Provider Attestation: All medical record entries made by the Raquelibe were at my direction and personally dictated by me. I have reviewed the chart and agree that the record accurately reflects my personal performance of the history, physical exam, medical decision making, and the department course for this patient. I have also personally directed, reviewed, and agree with the discharge instructions and disposition. Disposition/Present on Arrival - Present on Arrival Any Indicators Present on Arrival: No History of DVT/PE: No History of Uncontrolled Diabetes: No Urinary Catheter: No History of Decub. Ulcer: No History Surgical Site Infection Following: None - Disposition Have Diagnosis and Disposition been Completed?: Yes Diagnosis: Chest pain Disposition: HOSPITALIZED Disposition Time: 13:12 Condition: GUARDED Discharge Instructions (ExitCare): Chest Pain (ED) Forms: [employer] (Romansh)
[2017-11-01] MEDS ORDERED: Phenylephrine 10 mg/ml Inj ONE (13:08)
[2017-11-01] MEDS ORDERED: Lidocaine 2% Inj (20ml) ONE (13:08)
[2017-11-01] MEDS ORDERED: Midazolam 2 MG/2 ML VIAL ONE ×2 (13:09→13:33)
[2017-11-01] MEDS ORDERED: Iohexol 350mgl/ml 50 ML ONE (13:09)
[2017-11-01] MEDS ORDERED: Nitroglycerin 50mg in D5W 50 MG/250 ML BOTTLE IV ONE (13:10)
[2017-11-01] MEDS ORDERED: Iodixanol 320 MG/ML 100 ML BOTTLE IV ONE (13:10)
[2017-11-01] MEDS ORDERED: Iodixanol 320 MG/ML 200 ML BOTTLE IV ONE (13:10)
[2017-11-01 13:18] LABS: BASO # 0.04 K/mm3 (0.0-2.0); BASO % 0.3 % (0.0-3.0); EOS # 0.2 (0.0-0.7); EOS % 1.3 % (1.5-5.0); GRAN # 11.93 (1.4-6.5); GRAN % 86.9 % (50.0-68.0); HEMOGLOBIN 12.8 g/dL (12.0-16.0); LYMPH # 1.2 (1.2-3.4); MEAN CELL VOLUME 87.3 fl (80.0-105.0); MEAN CORPUSCULAR HGB CONC 33.2 g/dl (31.0-37.0); MEAN PLATELET VOLUME 9.3 fl (7.0-11.0); MONO # 0.4 (0.1-0.6); MONO % 2.5 % (1.0-6.0); RBC 4.41 10^6/uL (3.5-6.1); WHITE BLOOD COUNT 13.7 10^3/ul (4.5-11.0)
[2017-11-01 13:26] LABS: INR 0.99 (0.93-1.08); PARTIAL THROMBOPLASTIN TIME 32.1 Seconds (25.1-36.5); PROTHROMBIN TIME 11.3 SECONDS (9.4-12.5)
[2017-11-01 13:29] LABS: ALB/GLOB RATIO 1.3 (1.1-1.8); ALBUMIN 4.4 g/dL (3.0-4.8); CALCIUM 9.3 mg/dL (8.4-10.5)
[2017-11-01] MEDS ORDERED: Verapamil 2 ML ONE (13:33)
[2017-11-01 13:56] LABS: CK-MB 2.1 ng/mL (0.0-3.6)
[2017-11-01] MEDS ORDERED: Eptifibatide 20 mg/10mL Inj IVP ONE (13:57)
[2017-11-01 14:09] LABS: TROPONIN I 0.26 ng/mL
[2017-11-01] MEDS ORDERED: Sodium Chloride 0.9% 1,000 ML IV SCH (14:45)
--- NOTE | 2017-11-01 15:05 | CARD ---
APPROVED REPORT Procedure(s) performed: Left Heart Catheterization PTCA with Stenting of Mid LAD with COOKIE PTCA with Stenting of Proximal Cx with COOKIE PRU ...109 ( pt is sensitive to plavix, Ok to use plavix on her) HISTORY The patient is a 72 year-old female with a history of : previous DC (> 7 days), previous cardiac transplant, diabetes mellitus with insulin treatment , previous diagnostic cath, previous PCI (The PCI date was 05/07/2021), hypertension , dyslipidemia , Admitted with ACS/ Unstable angina. NSTEMI. INDICATION The indication(s) include : unstable angina , non-STEMI . CASE TECHNIQUE The patient was brought emergently to the Cardiac Catheterization Laboratory in a fasting state and was prepped and draped in a sterile manner. The left wrist was infiltrated with 2% Lidocaine subcutaneous anesthesia. A 6FR GLIDESHEATH ACCESS KIT sheath was inserted into the left radial artery without difficulty. Coronary angiography was performed using coronary diagnostic catheters. The left coronary system was accessed and visualized with a Diagnostic ,6F JL4 CATH DXT 100 CM catheter. The right coronary system was accessed and visualized with a Diagnostic ,6F JR 4 CATH DXT 100 CM catheter. The left ventricle was accessed and visualized with a 6F PIGTAIL 145 CATH DXT 110 CM catheter. Left ventricular/Aortic Valve gradient assessed on pullback. Closure device was deployed with a Fr TR Band (Regular) without any complications. The patient tolerated the procedure well and there were no complications associated with the procedure. Vessel Analysis The patient's coronary anatomy is right dominant. The left main coronary artery is a medium size vessel with diffuse calcification noted throughout this vessel and without significant stenosis. There is a 30% stenosis in the distal segment. The left main bifurcates to the left anterior descending and circumflex. The left anterior descending artery is a medium size vessel with diffuse calcification noted throughout this vessel and with significant stenosis. There is a 99% stenosis in the mid segment. The first diagonal branch is a medium size vessel with diffuse calcification noted throughout this vessel and without significant stenosis. The second diagonal branch is a small size vessel with diffuse calcification noted throughout this vessel and without significant stenosis. The circumflex artery is a medium size vessel with diffuse calcification noted throughout this vessel and with significant stenosis. There is a 80% stenosis in the proximal segment. The first obtuse marginal branch is a medium size vessel with diffuse calcification noted throughout this vessel and without significant stenosis. patent stent in OM1 The right coronary artery is a medium size vessel with diffuse calcification noted throughout this vessel and without significant stenosis. The right posterior descending artery is a medium size vessel with diffuse calcification noted throughout this vessel and without significant stenosis. The right posterolateral branch is a small size vessel with diffuse calcification noted throughout this vessel and with significant stenosis. There is a 100% stenosis in the mid segment. unchanged from 04/27/2017 Left Ventricle The left ventricle is borderline enlarged in size with moderately contractility. Ischemic cardiomyopathy. The left ventricular ejection fraction is estimated to be 35-40%. The left ventricular end diastolic pressure is 20 mmHg. There was no gradient across the aortic valve upon pullback. PCI Technique Lesion Anticoagulation was achieved with Heparin. Percutaneous coronary intervention was performed on the mid left anterior descending artery segment. The lesion stenosis prior to intervention was 99% with MARÍA 1 flow. A 6 Fr XB 3 Guide Catheter was used to engage the ostium. A Luge 182 Interventional Guidewire was used to cross the lesion. BALLOON DILATION A Balloon catheter 2.0 x 10 mm Sprinter RX was inserted and inflated up to 8.00atm for 13seconds. STENT DEPLOYMENT A drug-eluting stent STENT RESOLUTE MIROSLAVA 2.5 X15 was inserted and inflated up to 13.00atm for 10seconds. Final angiography reveals 0 % stenosis with MARÍA 3 flow. PCI Technique Lesion 2 Percutaneous Coronary Intervention was performed on the proximal circumflex artery segment. The lesion stenosis prior to intervention was 80% with MARÍA 2 flow. A 6 Fr XB 3 Guide Catheter was used to engage the ostium. A Luge 182 Interventional Guidewire was used to cross the lesion. BALLOON DILATION A Balloon catheter 2.0 x 10 mm Sprinter RX was inserted and inflated up to 8.00atm for 14seconds. STENT DEPLOYMENT A drug-eluting stent STENT RESOLUTE MIROSLAVA 2.5 X18 was inserted and inflated up to 13.00atm for 20seconds. Final angiography reveals 0 % stenosis with MARÍA 3 flow. Conclusion Two Vessel CAD Mid LAD 99% and proximal Cx-80%, Patent previos PTCA site in LAD/ CX/ OM! Moderately decreased LV Fx. EF-35-40% . Successful pTCA with COOKIE of Mid LAD and Proximal Cx. PRU 109 ( Pt is sensitive to Plavix, OK to use) Recommendations Daily ASA with Plavix for at least one year Aggressive Medical TherapyCardiac Risk Reduction Program Reassess LV fx in 3-6 months. cc; Nataly Fernandes MD
--- NOTE | 2017-11-01 15:11 | CPOSTOP ---
DATE: 11/01/2017 CARDIOVASCULAR LAB PROCEDURE POSTPROCEDURE NOTE PHYSICIAN: Casey Salinas MD BIKE ASSEMBLER: Silva, senior maintenance technician. TYPE OF ANESTHESIA: Moderate conscious sedation. Total dose given 3 mg of Versed, 150 of fentanyl, periodically started 1 mg of Versed and 50 of fentanyl. PRE-PROCEDURE DIAGNOSIS: Unstable angina, acute coronary syndrome. PROCEDURES PERFORMED: Left heart catheterization, stenting of mid left anterior descending artery, stenting of proximal circumflex. FINDINGS: Two-vessel critical disease. FINAL DIAGNOSIS: Two-vessel critical disease. POST PROCEDURE CONDITION: The patient's condition is stable. VASCULAR ACCESS SITE: Left radial. CLOSURE DEVICE: TR band. TOTAL RADIATION DOSE: 06399.9. FLUORO TIME: 12.1 minutes. Casey Salinas MD
[2017-11-01] MEDS: Insulin Reg-LOW-Coverage SC SCH ×2 (16:55→21:47)
[2017-11-01] MEDS ORDERED: LOPRESSOR 25 MG PO SCH (18:00)
[2017-11-01 18:57] LABS: BLOOD UREA NITROGEN 16 mg/dL (7-21); CALCIUM 8.2 mg/dL (8.4-10.5); GFR AFRICAN-AMERICAN > 60; GFR NON-AFRICAN AMERICAN 55
[2017-11-01] MEDS ORDERED: Bacitracin 500 Units/gm Oint Foilpak UD ONE (19:08)
[2017-11-01 19:48] LABS: BASO # 0.05 K/mm3 (0.0-2.0); BASO % 0.4 % (0.0-3.0); EOS # 0.1 (0.0-0.7); EOS % 1.1 % (1.5-5.0); GRAN # 9.53 (1.4-6.5); GRAN % 78.2 % (50.0-68.0); HEMOGLOBIN 11.5 g/dL (12.0-16.0); LYMPH # 1.8 (1.2-3.4); MEAN CELL VOLUME 87.5 fl (80.0-105.0); MEAN CORPUSCULAR HEMOGLOBIN 28.8 pg (25.0-35.0); MEAN PLATELET VOLUME 8.9 fl (7.0-11.0); MONO # 0.6 (0.1-0.6); MONO % 5.3 % (1.0-6.0); RBC 3.99 10^6/uL (3.5-6.1); RED CELL DISTRIBUTION WIDTH 12.9 % (11.5-14.5); WHITE BLOOD COUNT 12.2 10^3/ul (4.5-11.0)
--- NOTE | 2017-11-01 21:15 | CARD ---
APPROVED REPORT EKG Measurement Heart [id number] <Conclusion> Normal sinus rhythm Left axis deviation Inferior infarct, age undetermined ST & Marked T wave abnormality, consider anterolateral ischemia Prolonged QT Abnormal ECG
--- NOTE | 2017-11-01 21:22 | CARD ---
APPROVED REPORT EKG Measurement Heart [id number] <Conclusion> Poor data quality, interpretation may be adversely affected Normal sinus rhythm Inferior infarct, age undetermined Anterior infarct, age undetermined ST & T wave abnormality, consider socorro- lateral ischemia Prolonged QT Abnormal ECG
--- NOTE | 2017-11-02 00:21 | CON ---
DATE: REASON FOR THE CONSULTATION: Unstable angina, symmetrical T-wave inversion, history of coronary artery disease, history of a stent. BRIEF CLINICAL HISTORY: This is a 71-year-old female with past medical history of diabetes, hypertension, hyperlipidemia, coronary artery disease, history of cardiac catheterization and stent with mid LAD, stenting of OM1, with COOKIE and plain balloon angioplasty of the mid circumflex, there is a multivessel PTCA with acute coronary syndrome on 05/07/2017; experiencing some pressure in the chest for 2 days, got worse last night. This morning went to Dr. Lees and sent to the ER for evaluation. The patient shows symmetrical T-wave inversion in V2 to V4 with a pressure in the chest. Lengthy discussion done with the patient. The patient agreed to proceed for cardiac catheterization. PAST MEDICAL HISTORY: Significant for diabetes, hypertension, hyperlipidemia, coronary artery disease, multivessel PTCA on 05/07/2017. Previous cardiac workup as follows, the patient had echocardiography done on the last admission, 05/07/2017, that revealed ejection fraction 55%, trace aortic regurgitation, mild mitral regurgitation, mild tricuspid regurgitation, RV systolic pressure of 28. Status post cardiac catheterization on last admission because of acute coronary syndrome that revealed multivessel CAD, preserved LV function, ejection fraction 55%, EDP was in the range of 12. Successful PTCA with COOKIE of mid LAD and ostial OM1 and plain balloon angioplasty of the circumflex was done. SOCIAL HISTORY: Denies any smoking. Denies any history of alcohol abuse. CURRENT MEDICATIONS: The patient is taking at home metformin 500 p.o. b.i.d., Plavix 75 mg daily, Lopressor 25 mg p.o. b.i.d., lisinopril 10 mg daily, Lipitor 40, levothyroxine 25 mg, aspirin 81 mg daily. REVIEW OF SYSTEMS: As per HPI. PHYSICAL EXAMINATION: VITAL SIGNS: Temperature afebrile, heart rate 72, blood pressure 159/88. HEENT: PERRLA. Extraocular muscles intact. NECK: Supple. No carotid bruits or thyromegaly. CHEST: Clear to auscultation. HEART: S1 and S2 regular. ABDOMEN: Soft. EXTREMITIES: Clubbing and cyanosis negative. LABORATORY DATA: EKG shows normal sinus, symmetrical T-wave inversion V2 to V5. Blood workup as follows: WBC 13.7, hemoglobin 12.8, hematocrit 38.5, platelet count 437. Chemistry is pending. IMPRESSION: Acute coronary syndrome, unstable angina, diabetes, hypertension, hyperlipidemia. PLAN: Given these findings, we will suggest emergent cardiac catheterization. Further recommendations after cardiac catheterization. We will follow with you. Await for SMA-7 to come back. Thank you, Dr. Lees, for providing us the opportunity in taking care of the patient, Ailin Baker. Casey Salinas MD
[2017-11-02 07:17] LABS: BASO # 0.04 K/mm3 (0.0-2.0); BASO % 0.4 % (0.0-3.0); EOS # 0.2 (0.0-0.7); EOS % 2.2 % (1.5-5.0); GRAN # 7.32 (1.4-6.5); GRAN % 72.6 % (50.0-68.0); LYMPH # 1.9 (1.2-3.4); LYMPH % 18.4 % (22.0-35.0); MEAN CELL VOLUME 88.1 fl (80.0-105.0); MEAN CORPUSCULAR HEMOGLOBIN 28.5 pg (25.0-35.0); MEAN CORPUSCULAR HGB CONC 32.4 g/dl (31.0-37.0); MEAN PLATELET VOLUME 8.9 fl (7.0-11.0); MONO # 0.7 (0.1-0.6); MONO % 6.4 % (1.0-6.0); RBC 3.86 10^6/uL (3.5-6.1); RED CELL DISTRIBUTION WIDTH 13.2 % (11.5-14.5); WHITE BLOOD COUNT 10.1 10^3/ul (4.5-11.0)
[2017-11-02 07:30] LABS: ALB/GLOB RATIO 1.2 (1.1-1.8); ALBUMIN 3.5 g/dL (3.0-4.8); CALCIUM 8.6 mg/dL (8.4-10.5)
[2017-11-02] MEDS: Insulin Reg-LOW-Coverage SC SCH ×2 (07:58→11:46)
[2017-11-02] MEDS ORDERED: Levothyroxine 25 MCG TAB PO SCH (10:00)
[2017-11-02] MEDS ORDERED: LIPITOR 40 MG PO SCH (10:00)
[2017-11-02] MEDS ORDERED: LISINOPRIL 10 MG PO SCH (10:00)
[2017-11-02 14:37] VITALS: BP 124/73; PULSE 59; RESP 18; TEMP 98.7
[2017-11-02 14:45] VITALS: O2SAT 96
--- NOTE | 2017-11-02 17:17 | HP ---
HISTORY OF PRESENT ILLNESS: The patient is a 72 year old woman with a past medical history of CAD s/p PCI with stent placement, hypertension, hyperlipidemia and type 2 diabetes mellitus who presented to the ED from her PMD's office for evaluation of progressively worsening substernal chest tightness. The patient was seen in her PMD's office on the day of presentation to the ED for evaluation of a 2 day history of substernal chest pressure. She reported that since onset her chest pressure has been becoming more frequent and intense in nature. Given her underlying comorbidities, she was sent to the ED for further evaluation. Examination in the ED found her to be in mild distress secondary to chest pain. An EKG demonstrated symmetrical T-wave inversions in V2-V4. She was promptly assessed by Dr. Salinas from Cardiology and was taken to the cardiac catheterization lab where she underwent placement of drug-eluting stent to the mid LAD and proximal circumflex arteries. She was subsequently transferred to the telemetry tellez for postcardiac catheterization care. This morning she feels well, offers no complaints and is looking forward to going home. PAST MEDICAL HISTORY: As per HPI. PAST SURGICAL HISTORY: and partial hysterectomy. ALLERGIES: Codeine, Demerol and Sulfas. MEDICATIONS: Metformin 500 mg p.o. b.i.d., Lisinopril 10 mg p.o. daily, Aspirin 81 mg p.o. daily, Plavix 75 mg p.o. daily, Lipitor 40 mg p.o. daily, Metoprolol tartrate 25 mg p.o. b.i.d. and Synthroid 25 mcg p.o. daily. FAMILY HISTORY: Significant for lung cancer and hypertension in both parents. SOCIAL HISTORY: The patient denies any smoking. She reports social alcohol use and denies illicit drug abuse. REVIEW OF SYSTEMS: A 14-point review of systems is negative except as per HPI. PHYSICAL EXAMINATION VITAL SIGNS: Temperature 99.2, pulse 77, blood pressure 131/71, respiratory rate 18, oxygen saturation 95% on room air. GENERAL: No apparent distress. HEENT: PERRL, EOMI. No scleral icterus. No conjunctival pallor. NECK: No JVD. No bruits. LUNGS: Clear to auscultation. CARDIOVASCULAR: Regular rate and rhythm. Normal S1 and S2. No murmurs, rubs, or gallops. ABDOMEN: Normoactive bowel sounds, soft, nontender, nondistended. EXTREMITIES: No edema. Left arm radial access site appears clean, dry and intact. NEUROLOGIC: Awake, alert, and oriented x 3. No focal motor deficits. LABORATORY DATA: CBC reviewed and unremarkable. CMP reviewed and unremarkable. Cholesterol 119, triglycerides 107, LDL 63, HDL 33, TSH 1.6. ASSESSMENT: The patient is a 72 year old woman with a past medical history of CAD s/p PCI with stent placement, hypertension, hyperlipidemia, type 2 diabetes mellitus and hypothyroidism who was sent to the ED by her PMD for evaluation of a 2 day history of substernal chest pain and who underwent successful PCI with COOKIE stent placement to the mid LAD and proximal circumflex lesions. PLAN: 1. CAD s/p PCI with COOKIE placement x 2. Input from Dr. Salinas noted and greatly appreciated. The patient remains afebrile, hemodynamically stable and chest pain free. Continue Lipitor 40 mg p.o. daily, Aspirin 81 mg p.o. daily and Plavix 75 mg p.o. daily. She is cleared for discharge from the cardiac standpoint. 2. Hypertension. Blood pressure controlled. Continue Metoprolol 25 mg p.o. b.i.d. and Lisinopril 10 mg p.o. daily. 3. Hyperlipidemia. Lipid panel reviewed and satisfactory. Continue Lipitor 40 mg p.o. daily. 4. Hypothyroidism. TSH is satisfactory. Continue Synthroid 25 mcg p.o. daily. 5. Lii-gohpcin-dtbgniqlr diabetes mellitus. Continue Metformin 500 mg p.o. b.i.d. 6. Prophylaxis. GI prophylaxis is not indicated as the patient is eating. DVT prophylaxis is not indicated as the patient is ambulatory. CODE STATUS: Full code. Kristian Lees MD MTDD
--- NOTE | 2017-11-03 13:14 | CARD ---
APPROVED REPORT EKG Measurement Heart [id number] <Conclusion> Normal sinus rhythm Left axis deviation Inferior infarct, age undetermined T wave abnormality, consider anterolateral ischemia Abnormal ECG
--- NOTE | 2017-11-04 09:48 | DS ---
ADMITTING DIAGNOSIS: Unstable angina. DISCHARGE DIAGNOSES: Unstable angina and CAD s/p PCI with COOKIE stent placement x 2. SECONDARY DIAGNOSES: Hypertension, hyperlipidemia, type 2 diabetes mellitus and hypothyroidism. CONSULTATION: Dr. Salinas (Cardiology). PROCEDURES: Cardiac catheterization with placement of COOKIE stent to the mid-LAD and proximal circumflex lesions. HISTORY OF PRESENT ILLNESS: The patient is a 72 year old woman with a past medical history of CAD s/p PCI with stent placement, HTN, hyperlipidemia, NIDDM and hypothyroidism who presented to the ED from her PMD's office for evaluation of progressively worsening substernal chest tightness. The patient was seen in her PMD's office on the day of presentation to the ED for evaluation of a 2 day history of substernal chest pressure. Given her underlying comorbidities, she was referred to the ED for further evaluation. Examination in the ED found her to be in mild distress secondary to chest pain. An EKG demonstrated symmetrical T- wave inversions in V2-V4. She was promptly assessed by Dr. Salinas of Cardiology and taken to the cardiac catheterization lab where she underwent placement of COOKIE stent to the mid LAD and proximal circumflex lesions. She was subsequently transferred to the telemetry tellez for continued post catheterization care. HOSPITAL COURSE: The patient's postprocedure course was uncomplicated and the remainder of her hospital stay was unremarkable. The following day she was noted to be ambulating around the telemetry tellez with no cardiopulmonary symptoms and reported resolution of her presenting symptoms. Given her hemodynamic stability she was cleared for discharge from the cardiac standpoint. CONDITION: Good, improved. DISPOSITION: Home. DISCHARGE MEDICATIONS: Metformin 500 mg p.o. b.i.d., Lisinopril 10 mg p.o. daily, Aspirin 81 mg p.o. daily, Plavix 75 mg p.o. daily, Lipitor 40 mg p.o. daily, Metoprolol tartrate 25 mg p.o. b.i.d. and Synthroid 25 mcg p.o. daily. DISCHARGE INSTRUCTIONS: The patient was advised to adhere to post cardiac catheterization instructions as per Dr. Salinas. She was also advised that if she has any recurrence of her symptoms to present to her PMD or to the nearest ED immediately. FOLLOWUP: The patient to follow up with her PMD within 1 week of discharge. The patient to follow up with Dr. Salinas as scheduled. Kristian Lees MD [facility] # [id number] ANNIKA
--- NOTE | 2017-11-05 09:01 | CARD ---
APPROVED REPORT EXAM: Two-dimensional and M-mode echocardiogram with Doppler and color Doppler. INDICATION 2D DIMENSIONS IVSd1.3 (0.7-1.1cm)PWd1.2 (0.7-1.1cm) LVDs3.8 (2.5-4.0cm) M-Mode DIMENSIONS Left Atrium (MM)4.30 (2.5-4.0cm)Aortic Root3.50 (2.2-3.7cm) Aortic Cusp Exc.1.60 (1.5-2.0cm) Aortic Valve AoV Peak Ujjinedo003.0cm/Sanya Peak GR.14mmHgAI P 1/2 Ankg336np Mitral Valve MV E Pzqzbxij04.1cm/sMV A Zpopvart64.1cm/sE/A ratio1.0 TDI Lateral E' Peak V6.82cm/sMedial E' Peak V4.58cm/sE/Lateral E'10.0 E/Medial E'14.9 Tricuspid Valve TR Peak [id number]/sRAP [id number] Peak Gr.29mmHg [id number] LEFT VENTRICLE The left ventricle is normal size. There is mild concentric left ventricular hypertrophy. The systolic function is moderately impaired.EF-35% There is severe hypokinesis in the apical anterior wall. Transmitral Doppler flow pattern is Grade III-reversible restrictive diastolic dysfunction. No left ventricle thrombus noted on this study. There is no ventricular septal defect visualized. There is no left ventricular aneurysm. There is no mass noted in the left ventricle. RIGHT VENTRICLE The right ventricle is normal size. There is normal right ventricular wall thickness. The right ventricular systolic function is normal. ATRIA The left atrium is moderately dilated. The right atrium size is normal. The interatrial septum is intact with no evidence for an atrial septal defect. AORTIC VALVE The aortic valve is calcified and displays decreased opening. The aortic valve is moderately sclerotic. There is trace to mild aortic regurgitation. There is mild valvular aortic stenosis. There is no aortic valvular vegetation. MITRAL VALVE The mitral valve is thickened but opens well. Mitral regurgitation is mild. There is no mitral valve stenosis. There is no evidence of mitral valve prolapse. TRICUSPID VALVE The tricuspid valve leaflets are thickened , but open well. There is trace to mild tricuspid regurgitation.RVSP-39 mmof Hg. There is no tricuspid valve stenosis. There is no tricuspid valve prolapse or vegetation. PULMONIC VALVE The pulmonary valve is normal in structure. There is no pulmonic valvular regurgitation. There is no pulmonic valvular stenosis. GREAT VESSELS The aortic root is normal in size. The ascending aorta is normal in size. The pulmonary artery is normal. The IVC is normal in size and collapses >50% with inspiration. PERICARDIAL EFFUSION There is no pleural effusion. There is no pericardial effusion. <Conclusion> The left ventricle is normal size. There is mild concentric left ventricular hypertrophy. The systolic function is moderately impaired.EF-35% There is trace to mild aortic regurgitation. Mitral regurgitation is mild. There is trace to mild tricuspid regurgitation.RVSP-39 mmof Hg. The IVC is normal in size and collapses >50% with inspiration. There is no pericardial effusion.
== END 2017-11-02 15:35 | disposition home or self-care (01) ==
LOC: CATH 12:10 → ED 12:10 → 2RSO 14:46 → CATH 11-02 15:35
PROVIDERS: ATTEND Internal Medicine Cardiovascular Disease
DX: I21.4 Non-ST elevation (NSTEMI) myocardial infarction (principal); E11.9 Type 2 diabetes mellitus without complications; E78.5 Hyperlipidemia, unspecified; I10 Essential (primary) hypertension; I25.5 Ischemic cardiomyopathy; I25.750 Atherosclerosis of native coronary artery of transplanted heart with unstable angina; E03.9 Hypothyroidism, unspecified; I25.2 Old myocardial infarction; Z79.02 Long term (current) use of antithrombotics/antiplatelets; Z79.82 Long term (current) use of aspirin; Z79.4 Long term (current) use of insulin; Z95.5 Presence of coronary angioplasty implant and graft; Z94.1 Heart transplant status; Z90.710 Acquired absence of both cervix and uterus; Z80.1 Family history of malignant neoplasm of trachea, bronchus and lung; Z82.49 Family history of ischemic heart disease and other diseases of the circulatory system; Z88.2 Allergy status to sulfonamides; Z88.5 Allergy status to narcotic agent; Z87.892 Personal history of anaphylaxis; R40.2412 Glasgow coma scale score 13-15, at arrival to emergency department
CPT/HCPCS: 36415; 80053 ×2; 80061; 82550; 82553; 82948 ×2; 83036; 83615; 83735 ×2; 84100; 84443; 84484; 85025 ×2; 85175; 85576; 85610; 85730; 86850; 86900; 93005 ×2; 93306; 99152; 99153; 99285; C1725; C1769 ×3; C1874 ×2; C1887; C9600; C9601; J1327; J1644 ×2; J2250; J3010; J7030 ×2; Q9966; Q9967 ×2

== ENCOUNTER 2018-09-15 08:53 | Outpatient (CLI) | payer MEDICARE | END 2018-09-15 08:54 | disposition home or self-care (01) | LOC: CARDIO 08:53 ==